=== PATIENT | male | born 1990 | race African-American/Black ===

== ENCOUNTER 2016-07-21 13:27 | Emergency (ER) | payer SELFPAY ==
[2016-02-07 21:10] VITALS: BP 144/89
--- NOTE | 2016-07-21 13:57 | ED Physician Documentation ---
Headache - HISTORIAN Historian: patient - HPI Stated Complaint: headache Chief Complaint: Headache Onset: days ago (started yesterday) Timing: abrupt Exposure To: none Severity: moderate Quality: similar to previous Associated Symptoms: sensitivity to light, nausea, vomiting (yesterday). denies : fever, chills, sweating, problems with vision Exacerbated By: light Further Comments: yes (Patient has a history of migraines for 8-10 years. Has not seen a neurologist. Thsi its the first headache this year. No precipitating cuause noted. Nothing agrivates the headache.) - ROS NEURO/PSYCH: denies: confusion, anxiety - PAST HX Medical History: other (TMJ syndrome) Surgical History: other (achilles tendon rupture repair) Allergies/Adverse Reactions: Allergies Allergy/AdvReac Type Severity Reaction Status Date / Time No Known Allergies Allergy Verified 02/07/16 21:03 Home Medications: Ambulatory Orders Medication Instructions Recorded Amoxicillin [Trimox] 500 mg PO TID #30 capsule 02/07/16 traMADol HCL [Ultram] 50 mg PO Q6H PRN #18 tablet 02/07/16 - SOCIAL HX Smoking History: less than 1 pack/day (3 cigarettes a day) Alcohol Use: occasionally Drug Use: none - Family HX Family History: none - VITAL SIGNS Vital Signs: Vital Signs Temp Pulse Resp BP Pulse Ox 144/89 02/07/16 21:21 Headache Physical Exam - EXAM General Appearance: no acute distress, alert EENT: no facial swelling, eyes nml inspection, PERRL, other (some TMJ tenderness ). No: tender temporal artery, pain over sinuses Neck: normal inspection, thyroid normal, supple. No: lymphadenopathy Respiratory: no resp distress, chest non-tender. No: wheezes, rales, rhonchi CVS: reg. rate & rhythm, heart sounds nml Abdomen: non-tender, no organomegaly, nml bowel sounds, no distention Skin: color nml, no rash Extremitites: non-tender, normal range of motion, no evidence of injury - NEURO/PSYCH Higher Functions: alert, oriented x3, nml speech, mood/affect nml. denies: confused Cranial: nml as tested, no evidence of acute CVA Cerebellar: nml as tested, abnml Romberg test Sensorimotor: motor nml, sensation nml Discharge Clincal Impression: Headache Qualifiers: Headache type: unspecified Headache chronicity pattern: episodic headache Intractability: not intractable Qualified Code(s): R51 - Headache Additional Instructions: Home and rest in a dark quiet room. Consider getting a primary care provider for further evaluation. Return to the EDif you have any further problems. Home Medications: Ambulatory Orders Amoxicillin [Trimox] 500 mg PO TID #30 capsule 02/07/16 traMADol HCL [Ultram] 50 mg PO Q6H PRN #18 tablet 02/07/16 Condition: Stable Disposition: 01 HOME, SELF-CARE Decision to Admit: NO Date of Decison to Admit: 07/21/16 Decision Time: 14:19
[2016-07-21] MEDS ORDERED: KETOROLAC TROMETHAMINE 60 MG/2 ML VIAL IM ONE (14:07)
== END 2016-07-21 14:29 | disposition home or self-care (01) ==
LOC: ED 13:27
DX: R51 Headache (principal)
CPT/HCPCS: 96372; 99283; J1885

== ENCOUNTER 2016-08-18 12:15 | Emergency (ER) | payer SELFPAY ==
[2016-08-18 13:20] LABS: BASOPHILS % 0.5 (0.0-1.5); EOSINOPHILS % 0.8 % (0.0-6.8); MEAN CORPUSCULAR HEMOGLOBIN 27.1 pg (28.0-34.0); MEAN CORPUSCULAR VOLUME 87.3 fl (80.0-100.0); MONOCYTES % 4.4 % (0.0-11.0); NEUTROPHILS # 2.2 # k/uL (1.4-7.7)
[2016-08-18 13:35] LABS: eGFR (African) > 60; eGFR (Non-African) > 60
--- NOTE | 2016-08-18 14:01 | Diagnostic Imaging Report ---
[facility] [id number] [facility] [address] [place] [address]. [id number] Report Submission Date: August 18, 2016 1:50:45 PM CDT Patient Study Name: SIMRAN CROSS Date: August 18, 2016 1:12:00 PM CDT Modality Type: CR Gender: M Description: ABDOMEN : 88 Institution: [facility] Physician [facility] [place] EXAMINATION: Abdomen AP view. HISTORY: Left lower quadrant pain. FINDINGS: The bowel gas pattern is normal. No abnormal intra-abdominal calcifications are present. The lung bases are clear. IMPRESSION: Normal bowel gas pattern. Electronically signed on August 18, 2016 1:50:45 PM CDT by: Yousif VIERA
--- NOTE | 2016-08-18 14:02 | ED Physician Documentation ---
Nausea/Vomiting/Diarrhea - HISTORIAN Historian: patient - HPI Chief Complaint: Nausea,Vomiting,Diarrhea Onset: hours (0800), days ago Duration: persistent Last known Well Date: 08/18/16 Last Known Well Time: 07:00 Last known Well Code/Unknown Code: Known Severity: moderate - Associated Symptoms Vomiting: mild (x 2). denies: bloody, blood-streaked Diarrhea: mild. denies: bloody Abdominal Pain: cramping, LUQ (achy) - ROS CONST: none. denies: fever, chills GI/: black stools, dark urine. denies: bloody urine, bloody stools - PAST HX Past History: none Surgeries/Procedures: other (achilles tendon) Allergies/Adverse Reactions: Allergies Allergy/AdvReac Type Severity Reaction Status Date / Time No Known Allergies Allergy Verified 02/07/16 21:03 Home Medications: Ambulatory Orders Medication Instructions Recorded Citalopram Hydrobromide [Celexa] 20 mg PO DAILY 08/18/16 Mirtazapine [Remeron] 15 mg PO HS 08/18/16 Ondansetron HCl Rapdis [Zofran Odt] 4 mg PO Q8 #5 tab 08/18/16 - SOCIAL HX Smoking History: less than 1 pack/day (1/2 ppd) Alcohol Use: none Drug Use: none - FAMILY HX Family History: none - VITAL SIGNS Vital Signs: Vital Signs Temp Pulse Resp BP Pulse Ox 98.3 F 57 L 20 142/76 100 08/18/16 12:30 08/18/16 12:30 08/18/16 12:30 08/18/16 12:30 08/18/16 12:30 - REVIEWED ASSESSMENTS Nursing Assessment Reviewed: Yes Vitals Reviewed: Yes ED Results Lab/Radiology - Lab Results Lab Results: Lab Results 08/18/16 08/18/16 13:10 13:10 WBC 5.20 K/ul K/ul (4.00-12.00) RBC 5.03 M/ul M/ul (3.90-5.20) Hgb 13.6 g/dL g/dL (12.0-18.0) Hct 43.9 % % (37.0-53.0) MCV 87.3 fl fl (80.0-100.0) MCH 27.1 pg L pg (28.0-34.0) MCHC 31.0 g/dL g/dL (30.0-36.0) RDW 13.8 % % (11.3-14.3) Plt Count 241 K/mm3 K/mm3 (130-400) Neut % (Auto) 43.0 % % (39.0-79.0) Lymph % (Auto) 47.4 % % (16.0-50.0) Ponce % (Auto) 4.4 % % (0.0-11.0) Eos % (Auto) 0.8 % % (0.0-6.8) Baso % (Auto) 0.5 (0.0-1.5) Neut # 2.2 # k/uL # k/uL (1.4-7.7) Lymph # 2.5 # k/uL # k/uL (0.6-4.0) Ponce # 0.2 # k/uL # k/uL (0.0-0.9) Eos # 0.0 # k/uL # k/uL (0.0-0.6) Baso # 0.0 # k/uL # k/uL (0.0-0.5) Reactive Lymphs % 3.9 % % (0.0-5.0) Reactive Lymphs # 0.2 # k/uL # k/uL (0.0-0.8) Sodium 137 mmol/L mmol/L (136-145) Potassium 4.3 mmol/L mmol/L (3.5-5.0) Chloride 105 mmol/L mmol/L (98-110) Carbon Dioxide 30 mmol/L mmol/L (20-32) BUN 11 mg/dL mg/dL (10-26) Creatinine 0.9 mg/dL mg/dL (0.4-1.5) Estimated Creat Clear 134 Est GFR ( Amer) > 60 (60 - ) Est GFR (Non-Af Amer) > 60 (60 - ) Glucose 93 mg/dL mg/dL (70-99) Calcium 9.8 mg/dL mg/dL (8.5-10.5) Total Bilirubin 1.4 mg/dL H mg/dL (0.2-1.2) AST 27 U/L U/L (0-41) ALT 23 U/L U/L (0-45) Alkaline Phosphatase 73 U/L U/L (46-116) Total Protein 7.9 g/dL g/dL (6.0-8.5) Albumin 5.0 g/dL g/dL (3.0-5.5) - Orders Orders: ED Orders Category Date Time Status KUB [ABDOMEN 1 VIEW] [RAD] Stat Exams 08/18/16 Ordered CBC/PLATELET/DIFF Routine Lab 08/18/16 13:10 Completed CMP Routine Lab 08/18/16 13:10 Completed URINALYSIS Routine Lab 08/18/16 Uncollected Nausea Physical Exam - EXAM General Appearance: no acute distress, alert Neck: normal inspection Respiratory: no resp distress, chest non-tender, breath sounds normal. No: wheezes, rales CVS: reg rate & rhythm, heart sounds normal, equal pulses, no murmur, no gallop Abdomen: no organomegaly, tenderness (mild diffuse, more prominent in the LLQ), other (normal BS). No: guarding, rebound Back: non-tender Skin: warm/dry Extremities: non-tender, normal range of motion Neuro/Psych: oriented X3, CN's nml as tested Discharge Clincal Impression: Nausea & vomiting Prescriptions: Ondansetron HCl Rapdis [Zofran Odt] 4 mg PO Q8 #5 tab Referrals: Primary Doctor,No [Primary Care Provider] - 2 Days Additional Instructions: Drink a lot of fluids as long as it does not cause diarrhea, nausea. Clear liquids for the next 12-24 hours. Take Zofran as needed for nausea. If symptoms do not improve to return to the ED or see your primary care provider. Home Medications: Ambulatory Orders Citalopram Hydrobromide [Celexa] 20 mg PO DAILY 08/18/16 Mirtazapine [Remeron] 15 mg PO HS 08/18/16 Ondansetron HCl Rapdis [Zofran Odt] 4 mg PO Q8 #5 tab 08/18/16 Condition: Stable Disposition: 01 HOME, SELF-CARE Decision to Admit: NO Date of Decison to Admit: 08/18/16 Decision Time: 13:31
[2016-08-18 14:06] VITALS: BP 119/69
== END 2016-08-18 14:02 | disposition home or self-care (01) ==
LOC: ED 12:15
DX: R11.2 Nausea with vomiting, unspecified (principal)
CPT/HCPCS: 36415; 74000; 80053; 85025; 99283; S1016